=== PATIENT | male | born 1960 | race Caucasian/White ===

== ENCOUNTER 2021-01-28 11:18 | Emergency (ER) | payer OTHER ==
[2021-01-29 01:13] LABS: SARS-CoV-2 PCR by NAA Not Detected (NotDetected)
== END 2021-01-28 12:50 | disposition home or self-care (01) ==
LOC: BURERS 11:18
DX: R05 Cough (principal); Z20.822 Contact with and (suspected) exposure to COVID-19
CPT/HCPCS: 99283; U0003; U0005